=== PATIENT | female | born 1980 | race Caucasian/White ===

== ENCOUNTER 2019-02-14 05:32 | Emergency (ER) | payer BC ==
[2019-02-14 05:50] LABS: Glucose,Whole Blood 281 mg/dL (75-99)
[2019-02-14] MEDS ORDERED: SODIUM CHLORIDE 0.9% 1,000 ML IV STA (05:57)
[2019-02-14 06:08] LABS: Basophils # (A) 0.1 k/uL (0-0.2); Basophils % (A) 1 %; Eosinophils # (A) 0.3 k/uL (0-0.7); Eosinophils % (A) 3 %; HGB 15.6 gm/dL (11.4-16.0); Lymphocytes # (A) 2.5 k/uL (1.0-4.8); Lymphocytes % (A) 20 %; MCH 28.2 pg (25.0-35.0); MCHC 33.9 g/dL (31.0-37.0); MCV 83.4 fL (80.0-100.0); Mean Platelet Volume 7.5; Monocytes # (A) 0.5 k/uL (0-1.0); Monocytes % (A) 4 %; Neutrophils # (A) 8.7 k/uL (1.3-7.7); Neutrophils % (A) 71 %; Platelet Count 335 k/uL (150-450); RBC 5.51 m/uL (3.80-5.40); RDW 13.7 % (11.5-15.5); WBC 12.2 k/uL (3.8-10.6)
[2019-02-14] MEDS ORDERED: INSULIN REGULAR 100 UNIT/ML VIAL SQ ONE (06:13)
--- NOTE | 2019-02-14 06:20 | XR ---
EXAM: XR Chest, 2 Views. CLINICAL HISTORY: ITS.REASON XR Reason: Chest Pain TECHNIQUE: Frontal and lateral views of the chest. COMPARISON: 11/08/2014 FINDINGS: Lungs: Unremarkable. No consolidation. Pleural spaces: Unremarkable. No pneumothorax. Heart: Unremarkable. No cardiomegaly. Mediastinum: Unremarkable. Bones: Unremarkable. No acute fracture. IMPRESSION: Normal chest.
[2019-02-14 06:23] LABS: Albumin 4.5 g/dL (3.5-5.0); Anion Gap 8 mmol/L; Blood Urea Nitrogen 17 mg/dL (7-17); Calcium 9.8 mg/dL (8.4-10.2); Carbon Dioxide 26 mmol/L (22-30); Chloride 100 mmol/L (98-107); Glucose 284 mg/dL (74-99); Sodium 134 mmol/L (137-145); Total Bilirubin 0.5 mg/dL (0.2-1.3); Total Protein 7.7 g/dL (6.3-8.2)
[2019-02-14 06:24] LABS: D-Dimer 0.19 mg/L FEU (<0.60); INR 0.8 (<1.2); Prothrombin Time 9.4 sec (9.0-12.0)
[2019-02-14 06:25] LABS: Potassium 4.5 mmol/L (3.5-5.1)
[2019-02-14 06:26] LABS: ALT 16 U/L (9-52); AST 22 U/L (14-36); Alkaline Phosphatase 142 U/L (38-126)
--- NOTE | 2019-02-14 06:29 | ED ---
General Adult HPI - General Chief complaint: Chest Pain Stated complaint: Chest tightness Time Seen by Provider: 02/14/19 05:43 Source: patient Mode of arrival: ambulatory Limitations: no limitations - History of Present Illness Initial comments: Angela 38-year-old female presents to the emergency department today for evaluation of chest pressure, arm tingling. Patient reports that she woke suddenly this morning feeling like there is pressure in her chest, she couldn't catch her breath, both her arms were tingling. Patient reports that she took an aspirin sat down on the couch trying to calm herself however she couldn't make herself feel better she began to feel pressure radiating into her neck and tingling in her entire body which prompted her to the ER for evaluation. 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 Patient also states that she has not seen a primary care physician and some time and is currently out of her insulin and has been for over a week. Patient denies any fevers, chills, nausea, vomiting, palpitations, she denies any exertional chest pain, a family history of early cardiac disease. She denies any recent cough or illness. - Related Data Home Medications Medication Instructions Recorded Confirmed Ibuprofen [Motrin] 200 - 400 mg PO Q6HR PRN 11/08/14 02/14/19 Aspirin 81 mg PO DAILY 02/14/19 02/14/19 INSULIN LISPRO (humaLOG) [humaLOG] 0 units SQ DIRECTED 02/14/19 02/14/19 Insulin Glargine,Hum.rec.anlog 40 unit SQ HS 02/14/19 02/14/19 [Lantus Solostar] Lisinopril [Zestril] 10 mg PO DAILY 02/14/19 02/14/19 Allergies Allergy/AdvReac Type Severity Reaction Status Date / Time No Known Allergies Allergy Verified 02/14/19 05:39 Review of Systems ROS Statement: Those systems with pertinent positive or pertinent negative responses have been documented in the HPI. ROS Other: All systems not noted in ROS Statement are negative. Past Medical History Past Medical History: Diabetes Mellitus, Hypertension History of Any Multi-Drug Resistant Organisms: None Reported Past Surgical History: Cholecystectomy Past Psychological History: No Psychological Hx Reported Smoking Status: Never smoker Past Alcohol Use History: None Reported Past Drug Use History: None Reported General Exam - General Exam Comments Initial Comments: Physical Exam GENERAL: Patient is well-developed and well-nourished. Patient is nontoxic and well- hydrated and is in no distress. HENT: Normocephalic, Atraumatic. EYES: PERRL, EOMI PULMONARY: Unlabored respirations. No audible rales rhonchi or wheezing was noted. CARDIOVASCULAR: There is a regular rate and rhythm without any murmurs gallops or rubs. ABDOMEN: Soft and nontender with normal bowel sounds. SKIN: Skin is clear with no lesions or rashes and otherwise unremarkable. : Deferred NEUROLOGIC: Patient is alert and oriented x3. Moving all extremities spontaneously MUSCULOSKELETAL: Normal extremities with adequate strength and full range of motion. No lower extremity swelling or edema. No calf tenderness. PSYCHIATRIC: Normal psychiatric evaluation. Limitations: no limitations Course Vital Signs 02/14/19 02/14/19 05:34 05:52 Temperature 97.5 F L Pulse Rate 112 H Pulse Rate [ 80 Recruitment Director ] Respiratory 20 Rate Blood Pressure 149/102 O2 Sat by Pulse 100 Oximetry Medical Decision Making - Medical Decision Making Patient was seen and evaluated history is obtained from the patient 38-year-old female with no family history of cardiac disease, only risk factors are diabetes and obesity presenting with chest pain but concerned that she may just be having a panic attack on exam the patient is tachycardic tachypneic and hypertensive G were ordered EKG was obtained at 5:51 AM EKG with a rate of 102 rhythm is sinus tachycardia there is normal axis there are normal intervals, MS 138, QRS 88, QTC 463. There are no acute ST elevations or depressions there is no evidence of acute ischemia or infarction there is some respiratory variation secondary to the patient hyperventilating. S x-ray was unremarkable Labs including d-dimer and troponin were negative, upon reevaluation patient is resting comfortably she reports feeling much better her hypertension has resolved blood pressures 134/99 respiratory rate is 16 and heart rate is 93. Patient eager for discharge home is at 7:15 in the morning and she has worked at 8 AM and does not want to miss. Patient also notes that she does have metformin at home and has a prescription for insulin at [facility] which she is not picked up but will do so. - Lab Data Result diagrams: 02/14/19 05:58 02/14/19 05:58 Lab Results 02/14/19 02/14/19 02/14/19 Range/Units 05:48 05:58 05:58 WBC 12.2 H (3.8-10.6) k/uL RBC 5.51 H (3.80-5.40) m/uL Hgb 15.6 (11.4-16.0) gm/dL Hct 46.0 (34.0-46.0) % MCV 83.4 (80.0-100.0) fL MCH 28.2 (25.0-35.0) pg MCHC 33.9 (31.0-37.0) g/dL RDW 13.7 (11.5-15.5) % Plt Count 335 (150-450) k/uL Neutrophils % 71 % Lymphocytes % 20 % Monocytes % 4 % Eosinophils % 3 % Basophils % 1 % Neutrophils # 8.7 H (1.3-7.7) k/uL Lymphocytes # 2.5 (1.0-4.8) k/uL Monocytes # 0.5 (0-1.0) k/uL Eosinophils # 0.3 (0-0.7) k/uL Basophils # 0.1 (0-0.2) k/uL PT (9.0-12.0) sec INR (<1.2) APTT (22.0-30.0) sec D-Dimer (<0.60) mg/L FEU Sodium 134 L (137-145) mmol/L Potassium 4.5 (3.5-5.1) mmol/L Chloride 100 (98-107) mmol/L Carbon Dioxide 26 (22-30) mmol/L Anion Gap 8 mmol/L BUN 17 (7-17) mg/dL Creatinine 0.49 L (0.52-1.04) mg/dL Est GFR (CKD-EPI)AfAm >90 (>60 ml/min/1.73 sqM) Est GFR (CKD-EPI)NonAf >90 (>60 ml/min/1.73 sqM) Glucose 284 H (74-99) mg/dL POC Glucose (mg/dL) 281 H (75-99) mg/dL POC Glu State Archivist ID Aracelis [place] Calcium 9.8 (8.4-10.2) mg/dL Magnesium 2.0 (1.6-2.3) mg/dL Total Bilirubin 0.5 (0.2-1.3) mg/dL AST 22 (14-36) U/L ALT 16 (9-52) U/L Alkaline Phosphatase 142 H (38-126) U/L Troponin I (0.000-0.034) ng/mL Total Protein 7.7 (6.3-8.2) g/dL Albumin 4.5 (3.5-5.0) g/dL 02/14/19 02/14/19 Range/Units 05:58 05:58 WBC (3.8-10.6) k/uL RBC (3.80-5.40) m/uL Hgb (11.4-16.0) gm/dL Hct (34.0-46.0) % MCV (80.0-100.0) fL MCH (25.0-35.0) pg MCHC (31.0-37.0) g/dL RDW (11.5-15.5) % Plt Count (150-450) k/uL Neutrophils % % Lymphocytes % % Monocytes % % Eosinophils % % Basophils % % Neutrophils # (1.3-7.7) k/uL Lymphocytes # (1.0-4.8) k/uL Monocytes # (0-1.0) k/uL Eosinophils # (0-0.7) k/uL Basophils # (0-0.2) k/uL PT 9.4 (9.0-12.0) sec INR 0.8 (<1.2) APTT 23.0 (22.0-30.0) sec D-Dimer 0.19 (<0.60) mg/L FEU Sodium (137-145) mmol/L Potassium (3.5-5.1) mmol/L Chloride (98-107) mmol/L Carbon Dioxide (22-30) mmol/L Anion Gap mmol/L BUN (7-17) mg/dL Creatinine (0.52-1.04) mg/dL Est GFR (CKD-EPI)AfAm (>60 ml/min/1.73 sqM) Est GFR (CKD-EPI)NonAf (>60 ml/min/1.73 sqM) Glucose (74-99) mg/dL POC Glucose (mg/dL) (75-99) mg/dL POC Glu State Archivist ID Calcium (8.4-10.2) mg/dL Magnesium (1.6-2.3) mg/dL Total Bilirubin (0.2-1.3) mg/dL AST (14-36) U/L ALT (9-52) U/L Alkaline Phosphatase (38-126) U/L Troponin I <0.012 (0.000-0.034) ng/mL Total Protein (6.3-8.2) g/dL Albumin (3.5-5.0) g/dL Disposition Clinical Impression: Atypical chest pain, Hyperglycemia Disposition: HOME SELF-CARE Condition: Stable Instructions (If sedation given, give patient instructions): Chest Pain (ED) Is patient prescribed a controlled substance at d/c from ED?: No Referrals: Gurjit Prieto III, MD [Primary Care Provider] - 1-2 days
[2019-02-14 07:30] VITALS: BP 134/99; PULSE 100; RESP 19; TEMP 98.1
== END 2019-02-14 07:23 | disposition home or self-care (01) ==
LOC: EC 05:32
DX: R07.89 Other chest pain (principal); E11.65 Type 2 diabetes mellitus with hyperglycemia; I10 Essential (primary) hypertension; R00.0 Tachycardia, unspecified; R06.82 Tachypnea, not elsewhere classified; E66.9 Obesity, unspecified; Z68.32 Body mass index [BMI] 32.0-32.9, adult; Z79.82 Long term (current) use of aspirin; Z79.4 Long term (current) use of insulin; Z79.899 Other long term (current) drug therapy
CPT/HCPCS: 36415; 71046; 80053; 83735; 84484; 85025; 85379; 85610; 85730; 93005; 96360; 99285

== ENCOUNTER 2021-06-15 16:17 | Emergency (ER) | payer BC, OTHER ==
[2021-06-15] MEDS ORDERED: IBUPROFEN 600 MG TAB PO STA (17:58)
--- NOTE | 2021-06-15 18:03 | ED ---
General Adult HPI - General Chief complaint: Upper Respiratory Infection Stated complaint: fever, headaches, body aches Time Seen by Provider: 06/15/21 17:51 Source: patient, RN notes reviewed Mode of arrival: ambulatory Limitations: no limitations - History of Present Illness Initial comments: 41-year-old white female presents to the emergency room with complaints of cough, fever and body aches. Patient states that her 3 children have tested positive for Covid. Her symptoms started last night but today she developed a fever and worsening cough and body aches. She has a history of diabetes and hypertension. -: days(s) (2) Severity scale (1-10): 5 (Generalized body aches) Quality: aching Consistency: constant Improves with: none Worsens with: none Associated Symptoms: cough (Body aches), fever/chills, other (Dysuria) Treatments Prior to Arrival: none - Related Data Home Medications Medication Instructions Recorded Confirmed Ascorbic Acid [Vitamin C] 500 mg PO DAILY 06/15/21 06/15/21 Cholecalciferol [Vitamin D3 (25 25 mcg PO DAILY 06/15/21 06/15/21 Mcg = 1000 Iu)] Glimepiride [Amaryl] 4 mg PO AC-BRKFST 06/15/21 06/15/21 Metoprolol Succinate [Toprol XL] 25 mg PO DAILY 06/15/21 06/15/21 Zinc 50 mg PO DAILY 06/15/21 06/15/21 lisinopriL [Zestril] 20 mg PO DAILY 06/15/21 06/15/21 Previous Rx's Medication Instructions Recorded Sulfamethox-Tmp 800-160Mg [Bactrim 1 each PO Q12HR 7 Days #14 tab 06/15/21 Ds] Allergies Allergy/AdvReac Type Severity Reaction Status Date / Time No Known Allergies Allergy Verified 06/15/21 18:18 Review of Systems ROS Statement: Those systems with pertinent positive or pertinent negative responses have been documented in the HPI. ROS Other: All systems not noted in ROS Statement are negative. Past Medical History Past Medical History: Diabetes Mellitus, Hypertension History of Any Multi-Drug Resistant Organisms: None Reported Past Surgical History: Cholecystectomy Past Psychological History: No Psychological Hx Reported Smoking Status: Never smoker Past Alcohol Use History: None Reported Past Drug Use History: None Reported General Exam Limitations: no limitations General appearance: alert, in no apparent distress Head exam: Present: atraumatic, normocephalic, normal inspection Eye exam: Present: normal appearance, PERRL, EOMI. Absent: scleral icterus, conjunctival injection, periorbital swelling Pupils: Present: normal accommodation ENT exam: Present: normal exam, normal oropharynx, mucous membranes moist Neck exam: Present: normal inspection, full ROM. Absent: tenderness, meningismus, lymphadenopathy, thyromegaly Respiratory exam: Present: decreased breath sounds (Left lower lobe). Absent: wheezes, rales, rhonchi, chest wall tenderness, accessory muscle use Cardiovascular Exam: Present: tachycardia GI/Abdominal exam: Present: soft, normal bowel sounds. Absent: distended, tenderness, guarding, rebound, rigid Extremities exam: Present: normal inspection, full ROM, normal capillary refill. Absent: tenderness, pedal edema, joint swelling, calf tenderness Back exam: Present: normal inspection, full ROM. Absent: tenderness, CVA tenderness (R), CVA tenderness (L), muscle spasm, paraspinal tenderness, vertebral tenderness, rash noted Neurological exam: Present: alert, oriented X3, CN II-XII intact Psychiatric exam: Present: normal affect, normal mood Skin exam: Present: warm, dry, intact, normal color. Absent: rash, cyanosis, diaphoretic, petechiae, pallor Course Vital Signs 06/15/21 06/15/21 06/15/21 16:54 18:34 19:12 Temperature 99.6 F 102.1 F H Pulse Rate 107 H Respiratory 20 20 Rate Blood Pressure 148/94 O2 Sat by Pulse 100 Oximetry 06/15/21 06/15/21 19:15 20:30 Temperature 98.7 F 98.3 F Pulse Rate 92 96 Respiratory 16 16 Rate Blood Pressure 125/74 113/70 O2 Sat by Pulse 100 98 Oximetry Medical Decision Making - Medical Decision Making Patient's Covid test was positive after being exposed to her children. Her symptoms started yesterday. She was given monoclonal antibodies. She was also complaining of some dysuria and she has evidence of urinary tract infection. She will be treated for that as well. Directed to follow up with her primary care doctor in 1 week. She will be advised to self quarantine for 10 days and j ust 24 hours without fever. - Lab Data Lab Results 06/15/21 06/15/21 Range/Units 16:58 18:33 Urine Color Yellow Urine Appearance Cloudy H (Clear) Urine pH 6.5 (5.0-8.0) Ur Specific [place] 1.027 (1.001-1.035) Urine Protein Trace H (Negative) Urine Glucose (UA) 4+ H (Negative) Urine Ketones Negative (Negative) Urine Blood Large H (Negative) Urine Nitrite Negative (Negative) Urine Bilirubin Negative (Negative) Urine Urobilinogen <2.0 (<2.0) mg/dL Ur Leukocyte Esterase Moderate H (Negative) Urine RBC >182 H (0-5) /hpf Urine WBC 70 H (0-5) /hpf Ur Squamous Epith Cells 4 (0-4) /hpf Urine Bacteria Occasional H (None) /hpf Coronavirus (PCR) Detected A (Not Detectd) Disposition Clinical Impression: COVID-19, UTI (urinary tract infection) Disposition: HOME SELF-CARE Condition: Good Instructions (If sedation given, give patient instructions): Coronavirus Disease 2019 (COVID-19), Urinary Tract Infection in Women (ED) Additional Instructions: Return to the emergency room with any new or worsening symptoms including worsening shortness of breath or chest pain. Take Tylenol and/or Motrin for body aches and fevers. Self quarantine for 10 days after symptom onset and at least 24 hours fever free. Prescriptions: Sulfamethox-Tmp 800-160Mg [Bactrim Ds] 1 each PO Q12HR 7 Days #14 tab Is patient prescribed a controlled substance at d/c from ED?: No Referrals: Emma Sanders MD [Primary Care Provider] - 1-2 days
[2021-06-15] MEDS ORDERED: SODIUM CHLORIDE 0.9% 50 ML IVPB ONE (18:30)
[2021-06-15 19:00] LABS: Appearance,Urine Cloudy (Clear); Bacteria,Urine Occasional /hpf; Bilirubin,Urine Negative (Negative); Blood,Urine Large (Negative); Color,Urine Yellow; Glucose,Urine (UA) 4+ (Negative); Ketones,Urine Negative (Negative); Leukocyte Esterase,Urine Moderate (Negative); Nitrite,Urine Negative (Negative); PH, Urine 6.5 (5.0-8.0); Protein,Urine Trace (Negative); RBC,Urine >182 /hpf (0-5); Specific Gravity,Urine 1.027 (1.001-1.035); Squamous Epithelial Cell,Urine 4 /hpf (0-4); Urobilinogen,Urine <2.0 mg/dL (<2.0); WBC,Urine 70 /hpf (0-5)
[2021-06-15] MEDS ORDERED: CASIRIVIMAB/IMDEVIMAB (EUA) 1,200 MG in SODIUM CHLORIDE 0.9% 100 ML IVPB ONE (19:00)
[2021-06-15] MEDS ORDERED: SULFAMETHOX-TMP 800-160MG 1 EACH TAB PO STA (19:29)
[2021-06-15 20:07] VITALS: RESP 16
[2021-06-15 20:33] VITALS: BP 113/70; PULSE 96; TEMP 98.3
== END 2021-06-15 20:36 | disposition home or self-care (01) ==
LOC: EC 16:17
DX: U07.1 COVID-19 (principal); N39.0 Urinary tract infection, site not specified; I10 Essential (primary) hypertension; E11.9 Type 2 diabetes mellitus without complications; Z90.49 Acquired absence of other specified parts of digestive tract
CPT/HCPCS: 99283; 96365; 81001; 87086; 87635; Q0243

== ENCOUNTER 2022-02-04 06:43 | Emergency (ER) | payer OTHER ==
[2022-02-04 06:52] VITALS: BP 134/68; PULSE 98; RESP 18; TEMP 98.1
--- NOTE | 2022-02-04 07:29 | ED ---
General Adult HPI - General Chief complaint: Upper Respiratory Infection Stated complaint: Cough, weakness Time Seen by Provider: 02/04/22 06:55 Source: patient, RN notes reviewed Mode of arrival: ambulatory Limitations: no limitations - History of Present Illness Initial comments: This is a 41-year-old female presents emergency Department with chief complaint of cough congestion fever or chills body aches. Patient states symptoms started a few days ago. Patient states she was exposed to influenza a. Patient denies any difficulty breathing patient denies any chest pain currently. Patient offers no other complaints. - Related Data Home Medications Medication Instructions Recorded Confirmed Ascorbic Acid [Vitamin C] 500 mg PO DAILY 06/15/21 06/15/21 Cholecalciferol [Vitamin D3 (25 25 mcg PO DAILY 06/15/21 06/15/21 Mcg = 1000 Iu)] Glimepiride [Amaryl] 4 mg PO AC-BRKFST 06/15/21 06/15/21 Metoprolol Succinate [Toprol XL] 25 mg PO DAILY 06/15/21 06/15/21 Zinc 50 mg PO DAILY 06/15/21 06/15/21 lisinopriL [Zestril] 20 mg PO DAILY 06/15/21 06/15/21 Previous Rx's Medication Instructions Recorded Sulfamethox-Tmp 800-160Mg [Bactrim 1 each PO Q12HR 7 Days #14 tab 06/15/21 Ds] Allergies Allergy/AdvReac Type Severity Reaction Status Date / Time No Known Allergies Allergy Verified 02/04/22 06:52 Review of Systems ROS Statement: Those systems with pertinent positive or pertinent negative responses have been documented in the HPI. ROS Other: All systems not noted in ROS Statement are negative. Past Medical History Past Medical History: Diabetes Mellitus, Hypertension History of Any Multi-Drug Resistant Organisms: None Reported Past Surgical History: Cholecystectomy Past Psychological History: No Psychological Hx Reported Smoking Status: Never smoker Past Alcohol Use History: None Reported Past Drug Use History: None Reported General Exam Limitations: no limitations General appearance: alert, in no apparent distress Head exam: Present: atraumatic, normocephalic, normal inspection Eye exam: Present: normal appearance, PERRL, EOMI. Absent: scleral icterus, conjunctival injection, periorbital swelling ENT exam: Present: normal exam, normal oropharynx, mucous membranes moist Neck exam: Present: normal inspection, full ROM. Absent: tenderness, meningismus, lymphadenopathy Respiratory exam: Present: normal lung sounds bilaterally. Absent: respiratory distress, wheezes, rales, rhonchi, stridor Cardiovascular Exam: Present: regular rate, normal rhythm, normal heart sounds. Absent: systolic murmur, diastolic murmur, rubs, gallop, clicks Course Vital Signs 02/04/22 02/04/22 06:48 07:35 Temperature 98.1 F Pulse Rate 98 Respiratory 18 18 Rate Blood Pressure 134/68 O2 Sat by Pulse 97 Oximetry Medical Decision Making - Medical Decision Making Patient influenza A positive. Patient we discharged in stable condition return parameters were discussed. - Lab Data Lab Results 02/04/22 02/04/22 Range/Units 07:15 07:15 Coronavirus (PCR) Not Detected (Not Detectd) Influenza Type A RNA Detected H (Not Detectd) Influenza Type B (PCR) Not Detected (Not Detectd) Disposition Clinical Impression: Influenza Disposition: HOME SELF-CARE Condition: Stable Instructions (If sedation given, give patient instructions): Influenza (ED) Additional Instructions: Please return to the Emergency Department if symptoms worsen or any other concerns. Is patient prescribed a controlled substance at d/c from ED?: No Referrals: None,Stated [Primary Care Provider] - 1-2 days Time of Disposition: 08:25
== END 2022-02-04 08:49 | disposition home or self-care (01) ==
LOC: SUPCPDRO 06:43 → EC 06:43
DX: J10.1 Influenza due to other identified influenza virus with other respiratory manifestations (principal); I10 Essential (primary) hypertension; E11.9 Type 2 diabetes mellitus without complications; Z79.899 Other long term (current) drug therapy; Z79.84 Long term (current) use of oral hypoglycemic drugs; Z20.822 Contact with and (suspected) exposure to COVID-19
CPT/HCPCS: 87502; 87635; 99283

== ENCOUNTER 2023-02-27 00:21 | Emergency (ER) | payer OTHER ==
[2023-02-27 00:30] VITALS: TEMP 97.7
[2023-02-27] MEDS ORDERED: KETOROLAC 15 MG/ML 1 ML VIAL IM STA (00:38)
[2023-02-27] MEDS ORDERED: Acetaminophen-Codeine 300-30mg TAB PO STA (00:38)
--- NOTE | 2023-02-27 00:54 | ED ---
ENT HPI - General Chief complaint: ENT Stated complaint: Tooth Ache Time Seen by Provider: 02/27/23 00:31 Source: patient Mode of arrival: ambulatory Limitations: no limitations - History of Present Illness Initial comments: Patient is a 42-year-old female presenting with chief complaint of dental pain. Patient has known dental caries and has a tooth that she is aware needs to be pulled on the left upper side. She has been having increasing pain and swelling to that area. She was seen in urgent care today who started her on amoxicillin 875 mg. Patient states that she is in pain despite taking Motrin and Tylenol at home. No difficulty breathing or swallowing. No fevers or chills. No nausea or vomiting. - Related Data Home Medications Medication Instructions Recorded Confirmed Ascorbic Acid [Vitamin C] 500 mg PO DAILY 06/15/21 06/15/21 Cholecalciferol [Vitamin D3 (25 25 mcg PO DAILY 06/15/21 06/15/21 Mcg = 1000 Iu)] Glimepiride [Amaryl] 4 mg PO [id number] 06/15/21 06/15/21 Metoprolol Succinate [Toprol XL] 25 mg PO DAILY 06/15/21 06/15/21 Zinc 50 mg PO DAILY 06/15/21 06/15/21 lisinopriL [Zestril] 20 mg PO DAILY 06/15/21 06/15/21 Previous Rx's Medication Instructions Recorded Sulfamethox-Tmp 800-160Mg [Bactrim 1 each PO Q12HR 7 Days #14 tab 06/15/21 Ds] Acetaminophen-Codeine 300-30mg 1 tab PO Q6H PRN 3 Days #12 tablet 02/27/23 [Tylenol w/codeine #3] Amoxic-Pot Clav 875-125Mg 1 tab PO BID 7 Days #14 tab 02/27/23 [Augmentin 875-125] Allergies Allergy/AdvReac Type Severity Reaction Status Date / Time No Known Allergies Allergy Verified 02/27/23 00:28 Review of Systems ROS Statement: Those systems with pertinent positive or pertinent negative responses have been documented in the HPI. ROS Other: All systems not noted in ROS Statement are negative. Past Medical History Past Medical History: Diabetes Mellitus, Hypertension History of Any Multi-Drug Resistant Organisms: None Reported Past Surgical History: Cholecystectomy Past Psychological History: No Psychological Hx Reported Smoking Status: Never smoker Past Alcohol Use History: None Reported Past Drug Use History: None Reported General Exam Limitations: no limitations General appearance: alert, in no apparent distress Head exam: Present: atraumatic, normocephalic, normal inspection Eye exam: Present: normal appearance, EOMI. Absent: scleral icterus, periorbital swelling Expanded Mouth exam: Present: tongue normal, other (No brawny induration). Absent: drooling, trismus, muffled voice Teeth exam: Present: dental caries, fractured tooth #, dental tenderness # Throat exam: normal inspection Neck exam: Present: normal inspection, full ROM Neurological exam: Present: alert, oriented X3, CN II-XII intact Psychiatric exam: Present: normal affect, normal mood Skin exam: Present: warm, dry, intact, normal color. Absent: rash Course Vital Signs 02/27/23 02/27/23 00:25 01:36 Temperature 97.7 F Pulse Rate 117 H 106 H Respiratory 22 18 Rate Blood Pressure 142/84 136/105 O2 Sat by Pulse 98 98 Oximetry Medical Decision Making - Medical Decision Making Was pt. sent in by a medical professional or institution (, PA, FISH HATCHERY ASSISTANT, urgent care, hospital, or [facility]...) When possible be specific @ -No Did you speak to anyone other than the patient for history (EMS, parent, family, police, friend...)? What history was obtained from this source @ -No Did you review nursing and triage notes (agree or disagree)? Why? @ -I reviewed and agree with nursing and triage notes Were old charts reviewed (outside hosp., previous admission, EMS record, old EKG, old radiological studies, urgent care reports/EKG's, [facility] records)? Report findings @ -No old charts were reviewed Differential Diagnosis (chest pain, altered mental status, abdominal pain women, abdominal pain men, vaginal bleeding, weakness, fever, dyspnea, syncope, headache, dizziness, GI bleed, back pain, seizure, CVA, palpatations, mental health, musculoskeletal)? @ -Differential includes dental abscess, Prince's angina, dental pain, this is not an all inclusive list EKG interpreted by me (3pts min.). @ -As above X-rays interpreted by me (1pt min.). @ -None done CT interpreted by me (1pt min.). @ -None done U/S interpreted by me (1pt. min.). @ -None done What testing was considered but not performed or refused? (CT, X-rays, U/S, labs)? Why? @ -None What meds were considered but not given or refused? Why? @ -None Did you discuss the management of the patient with other professionals (professionals i.e. Dr., PA, FISH HATCHERY ASSISTANT, lab, RT, psych nurse, community mental health social worker, parole board member, teacher, retail loan officer, upper caser)? Give summary @ -No Was smoking cessation discussed for >3mins.? @ -No Was critical care preformed (if so, how long)? @ -No Were there social determinants of health that impacted care today? How? (Homelessness, low income, unemployed, alcoholism, drug addiction, transportation, low edu. Level, literacy, decrease access to med. care, fdc, rehab)? @ -No Was there de-escalation of care discussed even if they declined (Discuss DNR or withdrawal of care, Hospice)? DNR status @ -No What co-morbidities impacted this encounter? (DM, HTN, Smoking, COPD, CAD, Cancer, CVA, ARF, Chemo, Hep., AIDS, mental health diagnosis, sleep apnea, morbid obesity)? @ -None Was patient admitted / discharged? Hospital course, mention meds given and route, prescriptions, significant lab abnormalities, going to OR and other pertinent info. @ -Discharged home. Patient is a 42-year-old female presenting with chief complaint of increasing dental pain and swelling. On physical examination no trismus or drooling. No brawny induration, before the mouth is soft. She is having no difficulty breathing or swallowing. There are several noted dental caries and fractured teeth. Patient was originally started on amoxicillin, we will switch to Augmentin. She is prescribed a short course of Tylenol 3. Instructed to follow-up with dentist. Follow-up with PCP. Report back to ER with any new or worsening symptoms. Discussed return parameters and answered all questions. Patient conveyed verbal understanding and agreed to the plan. I discussed this case in detail with my attending Dr. Loco Undiagnosed new problem with uncertain prognosis? @ -No Drug Therapy requiring intensive monitoring for toxicity (Heparin, Nitro, Insulin, Cardizem)? @ -No Were any procedures done? @ -No Diagnosis/symptom? @ -Dental abscess Acute, or Chronic, or Acute on Chronic? @ -Acute Uncomplicated (without systemic symptoms) or Complicated (systemic symptoms)? @ -Uncomplicated Side effects of treatment? @ -No Exacerbation, Progression, or Severe Exacerbation? @ -No Poses a threat to life or bodily function? How? (Chest pain, [place], [place], pneumonia, PE, COPD, DKA, ARF, appy, cholecystitis, CVA, Diverticulitis, Homicidal, Suicidal, threat to staff... and all critical care pts) @ -No Disposition Clinical Impression: Dental abscess Disposition: HOME SELF-CARE Condition: Good Instructions (If sedation given, give patient instructions): Dental Abscess (ED) Additional Instructions: Follow up with dentist. Report back to ER with any new or worsening symptoms. Take Motrin and Tylenol as needed for pain control. Take antibiotics as prescribed. Please follow up with the [facility] dental clinic. [facility] [place] [address]. Phone number for new patients or [phone] for existing patients. Prescriptions: Amoxic-Pot Clav 875-125Mg [Augmentin 875-125] 1 tab PO BID 7 Days #14 tab Acetaminophen-Codeine 300-30mg [Tylenol w/codeine #3] 1 tab PO Q6H PRN 3 Days #12 tablet PRN Reason: Pain Is patient prescribed a controlled substance at d/c from ED?: No Referrals: None,Stated [REFERRING] - 1-2 days Time of Disposition: 01:00
[2023-02-27 01:37] VITALS: BP 136/105; PULSE 106; RESP 18
== END 2023-02-27 01:37 | disposition home or self-care (01) ==
LOC: EC 00:21
DX: K04.7 Periapical abscess without sinus (principal); K02.9 Dental caries, unspecified; E11.9 Type 2 diabetes mellitus without complications; I10 Essential (primary) hypertension; Z79.84 Long term (current) use of oral hypoglycemic drugs; Z79.899 Other long term (current) drug therapy; Z90.49 Acquired absence of other specified parts of digestive tract
CPT/HCPCS: 99283; 96372; J1885

== ENCOUNTER → 2023-10-19 | Outpatient (CLI) | payer OTHER ==
--- NOTE | 2023-10-20 09:40 | US ---
EXAMINATION TYPE: US thyroid st tissue head/neck DATE OF EXAM: 10/19/2023 COMPARISON: NONE CLINICAL INDICATION: Female, 43 years old with history of E04.1 NONTOXIC SINGLE THYROID NODULE; Pt st ates she has had nodules on her thyroid for years (imaged at other facility). Not on thyroid medicati on GLAND SIZE: Right Lobe: 4.8 x 1.7 x 1.9 cm. Overall Parenchyma: homogeneous Left Lobe: 4.8 x 1.6 x 1.5 cm. Overall Parenchyma: homogeneous Isthmus Thickness: 2.4 mm thick NODULES RIGHT: # of nodules measured on right: 2 1. 0.7 X 0.6 x 0.6 cm, mid/inf lateral, cystic or almost completely cystic, anechoic nodule, which is wider than tall, with smooth margins, without echogenic foci. 2. 0.9 X 0.9 x 0.6 cm, lower lateral, cystic or almost completely cystic, nodule, which is wider th an tall, with smooth margins, without echogenic foci. LEFT: # of nodules measured on left: 2 1. 1.2 X 1.1 x 0.6 cm, upper lateral, cystic or almost completely cystic, anechoic nodule, which is wider than tall, with smooth margins, without echogenic foci. 2. 0.7 X 0.7 x 0.4 cm, lower medial, cystic or almost completely cystic, anechoic nodule, which is wider than tall, with smooth margins, without echogenic foci. ISTHMUS: # of nodules measured in the isthmus: 0 Bilateral neck scanned, no evidence of lymphadenopathy. 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 No suspicious solid nodule is identified.
== END | disposition home or self-care (01) ==
LOC: RADUSWWP 16:52
PROVIDERS: ATTEND Family Medicine
DX: E04.2 Nontoxic multinodular goiter (principal)
CPT/HCPCS: 76536